=== PATIENT | male | born 1965 | race Caucasian/White ===

== ENCOUNTER 2024-03-10 07:20 | Emergency (ER) | payer OTHER, SELFPAY ==
[2024-03-10 07:29] VITALS: BP 123/68
--- NOTE | 2024-03-10 07:59 | ED.GENMED ---
History of Present Illness
General
Chief Complaint: Fever
Time Seen by Provider: 03/10/24 07:37
Travel History
Have you had any contact with someone who has COVID-19?: No
Do you have any symptoms of coronavirus? Fever > 100 degrees, chills, cough, shortness of breath, sore throat, loss of taste or smell, muscle aches, or headache?: No
History of Present Illness
History of Present Illness:
78-year-old male presents to the emergency department for evaluation of fevers, chills, and rigors for the past 3 days. Tmax 103.1 orally. Has been using ibuprofen for fever control, has a prior history of unspecified sepsis with transaminitis
approximately 15 years ago and as a result is leery of taking acetaminophen. He denies any sore throat, coughing, chest pain, shortness of breath, dysuria, diarrhea, or skin rashes. No recent international travel. No ill contacts at home.
Past History
Past History
ED Past Medical History: None
Social History
Tobacco: Other
Alcohol: Occasional
Family History
Family History: Negative Diabetes, Hypertension or CAD
Review of Systems
Review of Systems
Allergies reviewed?: Yes
All Other Systems: ROS reviewed and negative except as documented in HPI and ROS
Phy Exam
Physical Exam
Physical Exam:
GEN: Well appearing, NAD, WDWN
Eyes: PERRLA, EOMs intact, no scleral icterus
HENT: NCAT, oral mucosa moist, no JVD, no cervical adenopathy.
Lungs: CTAB, no wheezes, rales, rhonchi, normal chest wall excursion
Cardiac: RRR, no M/R/G, no peripheral edema. Radial pulses 2+ bilat
Abdomen: S, NT, ND, NABS, no masses or hepatosplenomegaly
Neuro: AO x 3, no focal deficits to BUE/BLE, normal sensation throughout
MSK: No gross deformity or ecchymosis. No edema. No digital clubbing
Skin: No rashes, petechiae. Normal color. + Diaphoretic
Psych: Calm, cooperative, proper hygiene
Course
Orders/Labs/Results
Orders:
Orders
03/10/24 07:57
0.9% Sodium Chloride 1000 ml [Nss] 1,000 ml IV BOLUS
CR Chest - 2 Views Urgent
Comment:
Reason For Exam: fever
03/10/24 08:18
COVID-19 Antigen Urgent
Source: Nasal Swab
Complete Blood Count/With Diff Urgent
Comprehensive Metabolic Panel Urgent
Lactic Acid Q4H
Comment: CANCEL 2nd LACTIC ACID IF 1st LACTIC ACID IS LESS THAN 2
Urinalysis Reflex To Culture Urgent
Date Specimen was Collected: 03/10/24
Time Specimen was Collected: 08:12
Blood Culture Q30M
JOHN Source: Blood/Venous
Specimen Description:
Influenza A+B Rapid Molecular Urgent
JOHN Source: Nasal Swab
Specimen Description:
03/10/24 08:38
Blood Culture Q30M
JOHN Source: Blood/Venous
Specimen Description:
Abnormal Lab Results
03/10/24
08:18
Absolute Neuts (auto) 7.5 H 10^3/uL
(1.4-6.5)
Absolute Lymphs (auto) 0.6 L 10^3/uL
(1.2-3.4)
Neutrophils % 86.8 H %
(42.2-75.2)
Lymphocytes % 6.3 L %
(20.5-51.1)
Sodium 134 L mmol/L
(135-145)
Glucose 113 H mg/dl
(70-99)
AST 67 H U/L
(17-59)
ALT 68 H U/L
(0-50)
Urine Ketones 2+ A
(Negative)
Urine Bilirubin 1+ A
(Negative)
03/10/24 08:18
03/10/24 08:18
Vital Signs
Initial and Last Documented VS:
Initial Vital Signs
Temp Pulse Resp BP Pulse Ox
100.3 F 110 16 123/68 98
03/10/24 07:29 03/10/24 07:29 03/10/24 07:29 03/10/24 07:29 03/10/24 07:29
Last Documented Vital Signs
Temp Pulse Resp BP Pulse Ox
98.2 F 70 16 128/75 98
03/10/24 11:04 03/10/24 11:04 03/10/24 11:04 03/10/24 11:04 03/10/24 11:04
MDM/Problems Addressed
MDM/Problems Addressed:
Cause the patient's fever is not clear. He does have mild transaminitis, as well as a questionable right lower infiltrate. He did report coughing yesterday thus we will treat this as an pneumonia empirically. Certainly could be a viral syndrome
given lack of leukocytosis. He is advised to monitor for jaundice or dark urine given his prior history of severe liver injury mediated by sepsis with unclear cause. Clinically stable and suitable for discharge home
*Critical Care Note
Total Time (30-74mins, 75-104mins- exclusive of procedures): Not Applicable
ED Attending Note
-
Portions of this chart may have been created with voice recognition software.� Occasional wrong word or��sound alike� substitutions may have occurred due to the inherent limitations of voice recognition software.
Discharge Plan
Departure
Patient Disposition: Home (Routine Discharge)
Date of Disposition: 03/10/24
Time of Disposition: 10:33
Patient with high blood pressure during this ER visit?: No
Discharge Problem:
Fever
Instructions: Fever, Adult (DC)
Prescriptions:
New
amoxicillin 500 mg capsule
2,000 mg PO Q12H 5 Days Qty: 40 0RF
No Action
acetaminophen-codeine 1 TABLET tablet
1 - 2 tab PO Q4HPRN PRN (Reason: moderate - severe pain) Qty: 20 0RF
Referrals:
Ivan Tellez MD [Family Provider] -
Activity Restrictions/Additional Instructions:
The source of your fever is not clear at this time however given that there is a small abnormality on her chest x-ray we will treat this for a community-acquired pneumonia. If you develop dark urine, light stool, or jaundice as you did many years
ago please return to the emergency department for reevaluation
Interventions
Interventions:
*Risk Screen - Suicide Last Done: 03/10/24 09:29
*General Assessment Last Done: 03/10/24 11:04
*Neglect/Abuse Screening Last Done: 03/10/24 09:29
ED- Fall Risk Assessment Last Done: 03/10/24 09:29
*ED COVID-19 Vaccine History Last Done: 03/10/24 07:29
*Nursing Disposition Last Done: 03/10/24 11:04
ED- Neurological Assessment Last Done: 03/10/24 09:29
ED-Skin Assessment Last Done: 03/10/24 09:29
Discharge Date and Time
Discharge Date/Time: 03/10/24 11:05
Print Language: MAORI
[2024-03-10] MEDS: NSS 1000 IV (08:14)
[2024-03-10 08:35] LABS: % Basophils 0.2 % (0-2); % Immature Granulocytes 0.3 % (0-0.5); % Lymphocytes 6.3 % (20.5-51.1); % Monocytes 4.4 % (1.7-9.3); % Neutrophils 86.8 % (42.2-75.2); Absolute Eosinophils 0.2 10^3/uL (0-0.7); Absolute Lymphocytes 0.6 10^3/uL (1.2-3.4); Absolute Monocytes 0.4 10^3/uL (0.1-0.6); Absolute Neutrophils 7.5 10^3/uL (1.4-6.5); Hematocrit 41.5 % (39.0-52.0); Hemoglobin 14.7 g/dL (13.0-18.0); Mean Corp Hgb Conc. 35.4 g/dL (33.0-37.0); Mean Corpuscular Hgb 30.9 pg (27.0-31.0); Mean Corpuscular Volume 87.2 fL (80.0-94.0); Mean Platelet Volume 9.5 fL (7.4-10.4); Nucleated Red Blood Cells % 0 % (-); Platelet Count 212 10^3/uL (130-400); Red Blood Cell Count 4.76 10^6/uL (4.70-6.10); Red Cell Dist. Width 12.5 % (11.5-14.5); White Blood Cell Count 8.7 10^3/uL (4.8-10.8)
[2024-03-10 08:49] LABS: Lactic Acid 0.7 mmol/L (0.7-2.0)
[2024-03-10 08:51] LABS: ALT (SGPT) 68 U/L (0-50); AST (SGOT) 67 U/L (17-59); Albumin 3.9 g/dl (3.5-5.0); Alkaline Phosphatase 79 U/L (38-126); Blood Urea Nitrogen 14 mg/dl (9-20); COVID-19 Antigen Negative (Negative); Carbon Dioxide 24 mmol/L (22-30); Chloride 103 mmol/L (98-107); Glucose 113 mg/dl (70-99); Potassium 3.6 mmol/L (3.5-5.1); Sodium 134 mmol/L (135-145); Total Bilirubin 0.8 mg/dl (0.2-1.3); Total Protein 6.9 g/dl (6.3-8.2); eGFR > 60.00
[2024-03-10 10:13] LABS: Urine Albumin Negative (Neg - Trace); Urine Bilirubin 1+ (Negative); Urine Character Clear (Clear); Urine Color Yellow; Urine Glucose Negative (Negative); Urine Ketone 2+ (Negative); Urine Leukocyte Negative (Negative); Urine Nitrite Negative (Negative); Urine Occult Blood Negative (Negative); Urine Specific Gravity 1.005 (<1.030); Urine Urobilinogen 1+ (Neg - 1+)
[2024-03-10 11:04] VITALS: BP 128/75
== END 2024-03-10 11:05 | disposition home or self-care (01) ==
LOC: EMR 07:20
PROVIDERS: Physician Assistant; EMERGENCY PHYSICIAN Emergency Medicine; FAMILY PHYSICIAN Family Medicine
DX: R50.9 Fever, unspecified (principal); R05.9 Cough, unspecified; R74.01 Elevation of levels of liver transaminase levels; R68.89 Other general symptoms and signs; F17.210 Nicotine dependence, cigarettes, uncomplicated; Z11.52 Encounter for screening for COVID-19
CPT/HCPCS: 99284; 96360; 71046; 80053; 81003; 83605; 85025; 87040; 87502; 87811